=== PATIENT | female | born 1975 | race Caucasian/White ===

== ENCOUNTER 2025-10-17 08:05 | Outpatient (REF) | payer OTHER, SELFPAY ==
--- NOTE | ~2025-10-17 | US_ITS ---
EXAMINATION: US RETROPERITONEUM HISTORY: PROTEINURIA TECHNIQUE: Real-time grayscale ultrasound imaging of the kidneys was performed and images were reviewed. COMPARISON: There are no prior studies available for comparison. FINDINGS: Right kidney: The right kidney measures 12.4 x 3.7 x 5.3 cm. Renal parenchymal echotexture and thickness are normal. There is a 2.4 x 1.7 x 2.3 cm lower pole cyst. There is no hydronephrosis or renal calculi. Left Kidney: The left kidney measures 12.1 x 4.8 x 4.5 cm. Renal parenchymal echotexture and thickness are normal. There are no masses. There is no hydronephrosis or renal calculi. The urinary bladder is unremarkable. Bilateral ureteral jets are identified. Before voiding, the urinary bladder measured 11.0 x 8.6 x 9.4 cm, for an estimated volume of 462 mL. After voiding, the urinary bladder measured 3.8 x 3.0 x 1.6 cm, for an estimated volume of 9.7 mL. US/US retroperitoneal comp IMPRESSION: 1. 2.4 x 1.7 x 2.3 cm right renal cyst. 2. Post void bladder residual of 9.7 mL. Electronically signed by: Charlie Vasquez MD 10/18/2025 06:59 AM [facility]
== END 2025-10-17 08:06 | disposition home or self-care (01) ==
LOC: HO.UMASIMG 08:05
PROVIDERS: Visit Provider Family Medicine
DX: R80.9 Proteinuria, unspecified (principal)
CPT/HCPCS: 76770

== ENCOUNTER → 2025-10-17 15:26 | Outpatient (BNV) | payer OTHER, SELFPAY | PROVIDERS: Visit Provider Radiology Diagnostic Radiology | DX: N28.1 Cyst of kidney, acquired (principal) | CPT/HCPCS: 76770 ==